=== PATIENT | male | born 1990 ===

== ENCOUNTER 2018-12-28 21:57 | Emergency (ER) | payer OTHER ==
[2018-12-28] MEDS ORDERED: Ondansetron 4 MG/2 ML SDV IVPUSH ONE (22:01)
[2018-12-28] MEDS ORDERED: Morphine 2 MG/ML Syringe IVPUSH ONE ×2 (22:01→22:29)
[2018-12-28] MEDS ORDERED: Diphtheria/Tetanus Toxoids,Adult (Td) 0.5 ML Syringe IM ONE (22:47)
--- NOTE | 2018-12-28 22:51 | EDM.PDOC ---
ED HPI GENERAL MEDICAL PROBLEM - General Chief Complaint: General Stated Complaint: LEFT FINGERS TRAUMA Time Seen by Provider: 12/28/18 22:15 Source of Information: Reports: Patient History Limitations: Reports: No Limitations - History of Present Illness INITIAL COMMENTS - FREE TEXT/NARRATIVE: Patient comes to ER with traumatic injury left fingers after getting them caught between auger and PTO. Employed at local [employer]. Denies other injuries. Left Finger-Middle Pain Score (Numeric/FACES): 8 - Related Data Allergies Allergy/AdvReac Type Severity Reaction Status Date / Time No Known Allergies Allergy Verified 12/28/18 22:00 Home Meds: Home Meds . [No Known Home Meds] 12/28/18 [History] Past Medical History - Past Health History Medical/Surgical History: Denies Medical/Surgical History ED ROS GENERAL - Review of Systems Review Of Systems: ROS reveals no pertinent complaints other than HPI. ED EXAM, GENERAL - Physical Exam Exam: See Below Exam Limited By: No Limitations General Appearance: Alert, WD/WN, Moderate Distress Eye Exam: Bilateral Eye: EOMI, PERRL Nose: No: Nasal Deformity, Nasal Swelling, Nasal Drainage Throat/Mouth: Normal Voice, No Airway Compromise Head: Atraumatic, Normocephalic Neck: Supple Respiratory/Chest: No Respiratory Distress Peripheral Pulses: 2+: Radial (L) Extremities: Other (Traumatic amputation of distal 2nd finger left hand. On 3rd finger distally past DIP joint fingertip is pointing downward and is mangled. Small amount of bleeding/oozing from wounds. No arterial bleeding noted at this time. No obvious trauma to thumb/palm/4th and 5th digits. ) Neurological: Alert, Oriented, Normal Cognition, Normal Gait Psychiatric: Anxious Skin Exam: Warm, Dry Course - Vital Signs Last Recorded V/S: Last Vital Signs Temp 37.2 C 12/28/18 22:23 Pulse 99 12/28/18 22:58 Resp 16 12/28/18 22:58 BP 133/85 12/28/18 22:58 Pulse Ox 99 12/28/18 22:58 - Orders/Labs/Meds Orders: Active Orders 24 hr Category Date Time Status Vaccines to be Administered [RC] PER UNIT ROUTINE Care 12/28/18 22:47 Ordered Fingers Multiple Lt [CR] Stat Exams 12/28/18 22:05 Ordered Labs: Laboratory Tests 12/28/18 12/28/18 Range/Units 22:55 22:55 WBC 11.4 H (4.0-10.2) K/uL RBC 4.97 (4.33-5.41) M/uL Hgb 14.7 (13.1-16.8) g/dL Hct 41.5 (39.0-49.0) % MCV 83.5 L (84.0-98.0) fL MCH 29.6 (28.2-33.3) pg MCHC 35.4 (31.7-36.0) g/dL RDW 13.0 (11.2-14.1) % Plt Count 228 (150-350) K/uL Neut % (Auto) 51.6 (45.0-80.0) % Lymph % (Auto) 35.3 (10.0-50.0) % Mercer % (Auto) 9.5 (2.0-14.0) % Eos % (Auto) 3.3 (0.0-5.0) % Baso % (Auto) 0.3 (0.0-2.0) % Neut # (Auto) 5.88 (1.40-7.00) K/uL Lymph # (Auto) 4.02 H (0.50-3.50) K/uL Mercer # (Auto) 1.08 H (0.00-1.00) K/uL Eos # (Auto) 0.38 (0.00-0.50) K/uL Baso # (Auto) 0.03 (0.00-0.20) K/uL Sodium 142 (136-145) mmol/L Potassium 3.5 (3.5-5.1) mmol/L Chloride 105 (98-107) mmol/L Carbon Dioxide 26.4 (21.0-32.0) mmol/L BUN 7 (7-18) mg/dL Creatinine 0.96 (0.51-1.17) mg/dL Est Cr Clr Drug Dosing TNP Estimated GFR (MDRD) > 60 mL/min Glucose 99 (74-106) mg/dL Calcium 9.3 (8.5-10.1) mg/dL Total Bilirubin 0.3 (0.2-1.0) mg/dL AST 22 (15-37) U/L ALT 39 (12-78) U/L Alkaline Phosphatase 90 (46-116) IU/L Total Protein 7.7 (6.4-8.2) g/dL Albumin 4.0 (3.4-5.0) g/dL Meds: Medications Discontinued Medications Generic Name Dose Route Start Last Admin Trade Name Dnao PRN Reason Stop Dose Admin Bupivacaine HCl 50 ml 12/28/18 22:12 Marcaine 0.25% INFILT 12/28/18 22:13 ONETIME ONE Cefazolin Sodium 1 gm/ Sodium 100 mls @ 400 mls/hr 12/28/18 23:23 12/28/18 23 :27 Chloride IV 12/28/18 23:37 400 mls/hr ONETIME ONE Administration Lidocaine HCl 10 ml 12/28/18 23:24 12/28/18 23:35 Xylocaine-Mpf 1% INJECT 12/28/18 23:25 10 ml ONETIME ONE Administration Morphine Sulfate 4 mg 12/28/18 22:01 12/28/18 22:05 Morphine IVPUSH 12/28/18 22:02 4 mg ONETIME ONE Administration Morphine Sulfate 4 mg 12/28/18 22:29 12/28/18 22:34 Morphine IVPUSH 12/28/18 22:30 4 mg ONETIME ONE Administration Ondansetron HCl 4 mg 12/28/18 22:01 12/28/18 22:05 Zofran IVPUSH 12/28/18 22:02 4 mg ONETIME ONE Administration Tetanus/Diphtheria Toxoids 0.5 ml 12/28/18 22:47 12/28/18 23:01 Tenivac IM 12/28/18 22:48 0.5 ml .ONCE ONE Administration - Radiology Interpretation Free Text/Narrative:: Xray taken of fingers for better view of 3rd and 4th fingertip injuries. - Re-Assessments/Exams Free Text/Narrative Re-Assessment/Exam: 12/28/18 22:54 Call placed to [place] in order to discuss patient's injuries with , hand surgeon [employer] tonight. Tetanus updated. MS given to help with pain. 12/28/18 23:24 Able to make contact with . He reviewed the xrays and wished for us to have patient sent to ER where will meet patient. Patient formally accepted by from the ER. Ancef given. Lidocaine 1% injected near bases of both the 2nd and 3rd digits for better comfort. Patient transferred by EMS to [facility] [place]. 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
[2018-12-28 23:10] LABS: CHLORIDE,CL 105 mmol/L (98-107); SODIUM,NA 142 mmol/L (136-145)
[2018-12-28] MEDS ORDERED: ceFAZolin 1 GM in Sodium Chloride 0.9% 100 ML IV ONE (23:23)
== END 2018-12-29 00:10 ==
LOC: LL.ED 21:57
DX: S68.611A Complete traumatic transphalangeal amputation of left index finger, initial encounter (principal); S68.613A Complete traumatic transphalangeal amputation of left middle finger, initial encounter; Z23 Encounter for immunization; W23.1XXA Caught, crushed, jammed, or pinched between stationary objects, initial encounter
CPT/HCPCS: 36415; 73140-LT; 80053; 85025; 90471; 90714; 96365; 96375; 99285-25; J0690; J2001; J2270; J2405; J7050